=== PATIENT | female | born 1990 | race African-American/Black ===

== ENCOUNTER 2022-08-22 07:04 | Emergency (ER) | payer MEDICAID ==
[~2022-08-22] VITALS: Ht 165.1 cm; Wt 122.3 kg
[2022-08-22 07:10] VITALS: BP 149/91
[2022-08-22 08:44] LABS: BASOPHILS % 0.5 % (0.0-2.0); EOSINOPHILS % 0.5 % (0.0-5.0); HEMATOCRIT. 40.4 % (36.0-48.0); HEMOGLOBIN. 13.4 g/dL (12.0-16.0); MEAN CORPUSCULAR HEMOGLOBIN 29.4 pg (28.0-32.0); MEAN CORPUSCULAR VOLUME 88.5 fL (81.0-99.0); MEAN PLATELET VOLUME 7.7 fl (7.4-10.4); MONOCYTES % 4.3 % (2.0-8.0); NEUTROPHILS % 67.7 % (40.0-76.0); PLATELET 309 x1000/uL (130-400); RED BLOOD CELL COUNT 4.56 mill/uL (4.2-5.4)
[2022-08-22 08:52] LABS: CHLORIDE 109 mEq/L (98-107)
[2022-08-22 09:00] LABS: CLARITY URINE CLEAR (CLEAR); COLOR URINE YELLOW (YELLOW); KETONES URINE NEGATIVE (NEGATIVE); LEUKOCYTE ESTERASE URINE NEGATIVE (NEGATIVE); NITRITE URINE NEGATIVE (NEGATIVE); OCCULT BLOOD URINE NEGATIVE (NEGATIVE); PH URINE 6.5 (4.5-8.0); PROTEIN URINE NEGATIVE (NEGATIVE); SPECIFIC GRAVITY URINE 1.023 (1.005-1.030); UROBILINOGEN URINE 0.2 E.U./dL (0.2-1.0)
[2022-08-23 08:11] LABS: HIV SCREEN 4G Non Reactive (Non Reactive)
[2022-08-24 04:07] LABS: NEISSERIA GONORRHOEAE NAA Negative (Negative)
== END 2022-08-22 12:04 | disposition home or self-care (01) ==
LOC: ER 07:04
DX: Z11.3 Encounter for screening for infections with a predominantly sexual mode of transmission (principal); Z98.890 Other specified postprocedural states; Z00.00 Encounter for general adult medical examination without abnormal findings
CPT/HCPCS: 36415; 80053; 81003; 81025; 85025; 87389; 87491; 87591; 99283; Z7610